=== PATIENT | male | born 1990 | race African-American/Black ===

== ENCOUNTER 2016-12-20 22:26 | Emergency (ER) | payer OTHER ==
[~2016-12-20] VITALS: Ht 188 cm; Wt 112.0 kg
[2016-12-20 22:26] VITALS: BP 138/73
--- NOTE | 2016-12-20 22:26 | NUR ---
PT TAKEN TO BED 7
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
--- NOTE | 2016-12-20 22:43 | NUR ---
Dr. Lyn evaluating patient at bedside.
[2016-12-20] MEDS ORDERED: ONDANSETRON 4 MG ODT PO ONE (22:50)
[2016-12-20] MEDS ORDERED: MORPHINE SULFATE 2 MG/ML SYR IM ONE (22:50)
--- NOTE | 2016-12-20 23:02 | NUR ---
PT TAKEN TO CT
--- NOTE | 2016-12-20 23:45 | NUR ---
PT RETURN FROM RADIOLOGY
[2016-12-21] MEDS ORDERED: fentaNYL 0.05 MG/ML VIAL IM ONE
[2016-12-21] MEDS ORDERED: BACITRACIN OINT 500 UNITS/GM PKT TP ONE (00:12)
[2016-12-21 01:33] VITALS: BP 142/82
--- NOTE | 2016-12-21 01:34 | NUR ---
Patient discharged with v/s stable. Written and verbal after care instructions given and explained. Patient alert, oriented and verbalized understanding of instructions. Ambulatory with steady gait. All questions addressed prior to discharge. ID band removed. Patient advised to follow up with PMD. Rx of NORCO AND MOTRIN given. Patient educated on indication of medication including possible reaction and side effects. Opportunity to ask questions provided and answered.
== END 2016-12-21 01:34 | disposition home or self-care (01) ==
LOC: MED 22:26
DX: S83.92XA Sprain of unspecified site of left knee, initial encounter (principal); S83.91XA Sprain of unspecified site of right knee, initial encounter; S00.03XA Contusion of scalp, initial encounter; S00.31XA Abrasion of nose, initial encounter; S60.417A Abrasion of left little finger, initial encounter; R03.0 Elevated blood-pressure reading, without diagnosis of hypertension; V89.2XXA Person injured in unspecified motor-vehicle accident, traffic, initial encounter; Y93.I9 Activity, other involving external motion; Y92.488 Other paved roadways as the place of occurrence of the external cause; Y99.8 Other external cause status
CPT/HCPCS: 29505; 70450; 70486; 71010; 72125; 73130; 73562; 90471; 90715; 93005; 96372; 96374; 99284; J2270; J3010; S0119